=== PATIENT | male | born 1990 | race Caucasian/White ===

== ENCOUNTER 2022-03-20 20:13 | Inpatient (IN) | payer OTHER, MEDICAID ==
[~2022-03-20] VITALS: Ht 172.7 cm; Wt 57.5 kg
[2022-03-20] MEDS ORDERED: SODIUM CHLORIDE 0.9% 1,000 ML IV ONE ×2 (21:15→23:15)
[2022-03-20] MEDS ORDERED: SODIUM BICARBONATE 8.4 % INJ 50ML VIAL IV ONE (21:15)
[2022-03-20 22:43] LABS: Basophils # (auto) 0 10 ^3/uL (0-0.2); Eosinophils # (auto) 0 10 ^3/uL (0-0.8); Hematocrit 45.6 % (41.0-53.0); Hemoglobin 15.3 g/dL (13.5-17.5); Lymphocytes # (auto) 0.9 10 ^3/uL (0.4-5.4); Lymphocytes % (auto) 4.3 % (10.0-50.0); Mean Corpuscular Hemoglobin 30.6 pg (28.0-32.0); Mean Corpuscular Hgb Conc. 33.5 g/dL (32.0-36.0); Mean Corpuscular Volume 91.3 fL (80.0-100.0); Monocytes # (auto) 2.2 10 ^3/uL (0-1.3); Monocytes % (auto) 10.6 % (0.0-12.0); Neutrophils # (auto) 17.9 10 ^3/uL (1.6-8.6); Neutrophils % (auto) 85.1 % (37.0-80.0); Red Cell Distribution Width 12.7 % (11.8-14.3)
[2022-03-20 23:01] LABS: Albumin 4.4 g/dL (3.4-5.0); BUN/Creatinine Ratio 17.8; Calcium 9.4 mg/dL (8.5-10.1); Magnesium 3.2 mg/dL (1.6-2.6); Potassium 5.2 mmol/L (3.5-5.1)
[2022-03-20 23:04] LABS: Total Protein 8.1 g/dL (6.4-8.2)
[2022-03-20] MEDS ORDERED: PIPERACILLIN-TAZOB 3.375GM 100 ML IV ONE (23:15)
[2022-03-20] MEDS ORDERED: InsuLIN R (HUMAN) 100 UNITS in SODIUM CHL 0.9% 99 ML IV SCH (23:30)
[2022-03-20] MEDS ORDERED: DEXTROSE (50%) 50ML SYRG IV PRN (23:30)
[2022-03-20] MEDS ORDERED: InsuLIN REG 1unit/0.01ml Soln (100units/ml) ONE (23:53)
[2022-03-21] MEDS ORDERED: ACCU-CHEK COMFORT CURVE STRIP VI SCH
[2022-03-21] MEDS ORDERED: InsuLIN R (HUMAN) 100 UNITS in SODIUM CHL 0.9% 99 ML IV SCH (00:45)
[2022-03-21] MEDS ORDERED: DEXTROSE (50%) 50ML SYRG IV PRN ×2 (00:45→07:15)
[2022-03-21] MEDS ORDERED: NITROGLYCERIN 0.4 MG SL TAB SL PRN (00:45)
[2022-03-21] MEDS: SODIUM CHLORIDE 0.9% 1,000 ML IV SCH ×2 (00:45→03:00)
[2022-03-21] MEDS ORDERED: MORPHINE SULFATE INJ 2 MG/ml SYRG IV PRN (00:45)
[2022-03-21] MEDS ORDERED: ONDANSETRON HCL 4 MG/2 ML VIAL IV PRN (00:45)
[2022-03-21] MEDS ORDERED: INSULIN LANTUS (GLARGINE) 1 /0.01ml (100units/ml) SC ONE (00:45)
[2022-03-21 01:15] LABS: Urine Bacteria FEW /hpf (None Seen); Urine Blood Negative /uL (Negative); Urine Specific Gravity 1.027 (1.001-1.035); Urine WBC 1 /hpf (0 - 3)
[2022-03-21] MEDS: ACCU-CHEK COMFORT CURVE STRIP VI SCH ×8 (01:34→20:00)
[2022-03-21] MEDS ORDERED: SODIUM CHLORIDE 0.9% 1,000 ML IV SCH ×2 (04:45→06:45)
[2022-03-21 04:57] LABS: Basophils # (auto) 0 10 ^3/uL (0-0.2); Basophils % (auto) 0.3 % (0.0-2.0); Eosinophils # (auto) 0 10 ^3/uL (0-0.8); Hematocrit 37.8 % (41.0-53.0); Hemoglobin 12.6 g/dL (13.5-17.5); Lymphocytes # (auto) 0.7 10 ^3/uL (0.4-5.4); Lymphocytes % (auto) 4.5 % (10.0-50.0); Mean Corpuscular Hemoglobin 29.8 pg (28.0-32.0); Mean Corpuscular Hgb Conc. 33.4 g/dL (32.0-36.0); Mean Corpuscular Volume 89.2 fL (80.0-100.0); Monocytes # (auto) 1.7 10 ^3/uL (0-1.3); Monocytes % (auto) 11.9 % (0.0-12.0); Neutrophils # (auto) 12.2 10 ^3/uL (1.6-8.6); Neutrophils % (auto) 83.3 % (37.0-80.0); Red Blood Cells 4.23 10^6/uL (4.5-5.90); Red Cell Distribution Width 12.8 % (11.8-14.3); White Blood Cell 14.6 10^3/uL (4.4-10.8)
[2022-03-21 05:17] LABS: BUN/Creatinine Ratio 19.4; Calcium 8.1 mg/dL (8.5-10.1); Magnesium 2.3 mg/dL (1.6-2.6); Phosphorus 2.4 mg/dL (2.5-4.90); Potassium 3.9 mmol/L (3.5-5.1)
[2022-03-21] MEDS: InsuLIN REG 1unit/0.01ml Soln (100units/ml) SC SCH ×4 (08:00→21:06)
[2022-03-21 10:51] LABS: Calcium 8.3 mg/dL (8.5-10.1)
[2022-03-21 10:56] LABS: BUN/Creatinine Ratio 16.4
[2022-03-21] MEDS ORDERED: ACETAMINOPHEN 325 MG TAB PO PRN (14:15)
[2022-03-21] MEDS ORDERED: ACETAMINOPHEN 500 MG TAB PO PRN (14:15)
[2022-03-21] MEDS ORDERED: PANTOPRAZOLE 40 MG/10 ML VIAL INJ IV ONE (14:15)
[2022-03-21] MEDS: SOD CHL 0.45% 1,000 ML IV SCH (14:39)
[2022-03-21] MEDS ORDERED: INSU100I4 SC (15:39)
[2022-03-21 22:00] VITALS: BP 105/56
[2022-03-21] MEDS ORDERED: INSULIN LANTUS (GLARGINE) 1 /0.01ml (100units/ml) SC SCH (22:00)
[2022-03-22] MEDS: ACCU-CHEK COMFORT CURVE STRIP VI SCH ×5 (00:11→16:00)
[2022-03-22] MEDS: SOD CHL 0.45% 1,000 ML IV SCH ×2 (01:41→09:11)
[2022-03-22] MEDS: InsuLIN REG 1unit/0.01ml Soln (100units/ml) SC SCH ×5 (04:00→16:00)
[2022-03-22 05:00] VITALS: BP 101/64
[2022-03-22 05:45] LABS: Basophils # (auto) 0 10 ^3/uL (0-0.2); Basophils % (auto) 0.1 % (0.0-2.0); Eosinophils # (auto) 0 10 ^3/uL (0-0.8); Eosinophils % (auto) 0.1 % (0.0-7.0); Hematocrit 33.9 % (41.0-53.0); Hemoglobin 11.7 g/dL (13.5-17.5); Lymphocytes # (auto) 1.5 10 ^3/uL (0.4-5.4); Lymphocytes % (auto) 20.5 % (10.0-50.0); Mean Corpuscular Hemoglobin 30.8 pg (28.0-32.0); Mean Corpuscular Hgb Conc. 34.5 g/dL (32.0-36.0); Mean Corpuscular Volume 89.3 fL (80.0-100.0); Monocytes # (auto) 0.7 10 ^3/uL (0-1.3); Monocytes % (auto) 9.1 % (0.0-12.0); Neutrophils # (auto) 5.1 10 ^3/uL (1.6-8.6); Neutrophils % (auto) 70.2 % (37.0-80.0); Nucleated Red Blood Cells % 0.1 %; Red Cell Distribution Width 13.2 % (11.8-14.3); White Blood Cell 7.3 10^3/uL (4.4-10.8)
[2022-03-22 06:20] LABS: BUN/Creatinine Ratio 19.7; Calcium 8.3 mg/dL (8.5-10.1)
[2022-03-22] MEDS ORDERED: INSULIN LANTUS (GLARGINE) 1 /0.01ml (100units/ml) SC SCH (10:00)
[2022-03-22] MEDS ORDERED: PANTOPRAZOLE 40 MG/10 ML VIAL INJ IV SCH (10:00)
[2022-03-22] MEDS ORDERED: INSLANTI SC ×2 (12:48→15:38)
[2022-03-22 13:00] VITALS: BP 98/76
[2022-03-22] MEDS ORDERED: POTASSIUM CHL 20 Meq TABLET PO ONE (13:00)
[2022-03-22 14:07] VITALS: BP 122/81
[2022-03-22 17:50] VITALS: BP 103/70
== END 2022-03-22 17:00 | disposition home or self-care (01) | DRG 638 ==
LOC: EDBD 20:13 → ER 20:13 → TELE 03-21 00:49 → WEST WING 03-21 15:04
PROVIDERS: ADMIT Nurse Practitioner; ATTEND Internal Medicine
DX: E11.10 Type 2 diabetes mellitus with ketoacidosis without coma (principal); N17.9 Acute kidney failure, unspecified; R65.10 Systemic inflammatory response syndrome (SIRS) of non-infectious origin without acute organ dysfunction; E86.0 Dehydration; K59.00 Constipation, unspecified; Z20.822 Contact with and (suspected) exposure to COVID-19; Z79.4 Long term (current) use of insulin; Z91.19 Patient's noncompliance with other medical treatment and regimen
CPT/HCPCS: 36415; 36600; 51702; 71045; 74176; 80048; 80053; 81001; 82010; 82805; 82962; 83605; 83690; 83735; 83930; 84100; 85025; 87040; 93005; 96361; 96365; 96367; 96375; 99291; C9113; G0378; J1815; J2405; J2543

== ENCOUNTER 2022-06-12 04:26 | Inpatient (IN) | payer OTHER, MEDICAID ==
[~2022-06-12] VITALS: Ht 177.8 cm; Wt 59.9 kg
[~2022-06-12 04:26] MED LIST: INSLANTI SC; INSU100I4 SC
[2022-06-12] MEDS ORDERED: SODIUM CHLORIDE 0.9% 2,000 ML IV ONE (05:15)
[2022-06-12] MEDS ORDERED: ONDANSETRON HCL 4 MG/2 ML VIAL IV ONE (05:15)
[2022-06-12 05:28] LABS: Basophils # (auto) 0 10 ^3/uL (0-0.2); Basophils % (auto) 0.3 % (0.0-2.0); Eosinophils # (auto) 0 10 ^3/uL (0-0.8); Hematocrit 51.8 % (41.0-53.0); Lymphocytes # (auto) 0.6 10 ^3/uL (0.4-5.4); Lymphocytes % (auto) 3.6 % (10.0-50.0); Mean Corpuscular Hemoglobin 31.8 pg (28.0-32.0); Mean Corpuscular Hgb Conc. 32.8 g/dL (32.0-36.0); Mean Corpuscular Volume 96.9 fL (80.0-100.0); Monocytes # (auto) 0.5 10 ^3/uL (0-1.3); Monocytes % (auto) 3.1 % (0.0-12.0); Neutrophils # (auto) 15.3 10 ^3/uL (1.6-8.6); Nucleated Red Blood Cells % 0.2 %; Red Blood Cells 5.35 10^6/uL (4.5-5.90); Red Cell Distribution Width 12.9 % (11.8-14.3); White Blood Cell 16.4 10^3/uL (4.4-10.8)
[2022-06-12 05:38] LABS: Alanine Aminotransferase 54 U/L (16-61); Albumin 4.6 g/dL (3.4-5.0); Anion Gap 28 (5-15); Aspartate Aminotransferase 39 U/L (15-37); BUN/Creatinine Ratio 22.2; Blood Urea Nitrogen 41 mg/dL (7-18); Calcium 9.7 mg/dL (8.5-10.1); Chloride 104 mmol/L (98-107); GFR African American 56 mL/min; GFR Non-African American 46 mL/min; Potassium 5.3 mmol/L (3.5-5.1); Sodium 141 mmol/L (136-145)
[2022-06-12 05:41] LABS: Alkaline Phosphatase 115 U/L (45-117); Bilirubin, Total 0.8 mg/dL (0.2-1.0); Total Protein 8.7 g/dL (6.4-8.2)
[2022-06-12 05:52] LABS: Carbon Dioxide 9 mmol/L (21-32)
[2022-06-12 05:53] LABS: Glucose 567 mg/dL (74-106)
[2022-06-12] MEDS ORDERED: InsuLIN R (HUMAN) 100 UNITS in SODIUM CHL 0.9% 99 ML IV SCH ×2 (06:30→10:00)
[2022-06-12] MEDS ORDERED: INSULIN LANTUS (GLARGINE) 1 /0.01ml (100units/ml) SC ONE ×3 (06:30→13:45)
[2022-06-12] MEDS ORDERED: DEXTROSE (50%) 50ML SYRG IV PRN ×3 (06:30→13:45)
[2022-06-12 07:37] LABS: Urine Bacteria NONE SEEN /hpf (None Seen); Urine Blood Negative /uL (Negative); Urine Specific Gravity 1.029 (1.001-1.035); Urine WBC <1 /hpf (0 - 3)
[2022-06-12] MEDS: SODIUM CHLORIDE 0.9% 1,000 ML IV SCH ×4 (07:46→12:08)
[2022-06-12] MEDS: ACCU-CHEK COMFORT CURVE STRIP VI SCH ×7 (07:46→21:58)
[2022-06-12 08:20] LABS: Magnesium 2.6 mg/dL (1.6-2.6); Phosphorus 2.2 mg/dL (2.5-4.90)
[2022-06-12] MEDS ORDERED: ONDANSETRON HCL 4 MG/2 ML VIAL IV PRN (09:45)
[2022-06-12] MEDS ORDERED: NITROGLYCERIN 0.4 MG SL TAB SL PRN (09:45)
[2022-06-12] MEDS ORDERED: MORPHINE SULFATE INJ 2 MG/ml SYRG IV PRN ×2 (09:45)
[2022-06-12] MEDS ORDERED: ACCU-CHEK COMFORT CURVE STRIP VI SCH (10:30)
[2022-06-12] MEDS ORDERED: SODIUM CHLORIDE 0.9% 1,000 ML IV SCH ×4 (10:30→16:00)
[2022-06-12] MEDS: PANTOPRAZOLE 40 MG/10 ML VIAL INJ IV SCH (10:47)
[2022-06-12 13:23] LABS: Basophils # (auto) 0.1 10 ^3/uL (0-0.2); Basophils % (auto) 0.6 % (0.0-2.0); Eosinophils # (auto) 0 10 ^3/uL (0-0.8); Eosinophils % (auto) 0.1 % (0.0-7.0); Hematocrit 42.2 % (41.0-53.0); Hemoglobin 14.1 g/dL (13.5-17.5); Lymphocytes # (auto) 1.2 10 ^3/uL (0.4-5.4); Lymphocytes % (auto) 10.6 % (10.0-50.0); Mean Corpuscular Hemoglobin 31.3 pg (28.0-32.0); Mean Corpuscular Hgb Conc. 33.4 g/dL (32.0-36.0); Mean Corpuscular Volume 93.8 fL (80.0-100.0); Monocytes # (auto) 1.1 10 ^3/uL (0-1.3); Monocytes % (auto) 10.1 % (0.0-12.0); Neutrophils # (auto) 8.7 10 ^3/uL (1.6-8.6); Neutrophils % (auto) 78.6 % (37.0-80.0); Red Cell Distribution Width 12.6 % (11.8-14.3); White Blood Cell 11.1 10^3/uL (4.4-10.8)
[2022-06-12 13:34] LABS: Albumin 3.5 g/dL (3.4-5.0); Calcium 8.7 mg/dL (8.5-10.1); Potassium 4.7 mmol/L (3.5-5.1)
[2022-06-12 13:37] LABS: BUN/Creatinine Ratio 25.7; Bilirubin, Total 0.7 mg/dL (0.2-1.0); Total Protein 6.5 g/dL (6.4-8.2)
[2022-06-12] MEDS: SOD CHL 0.45% 1,000 ML IV SCH ×2 (14:10→21:45)
[2022-06-12] MEDS: InsuLIN REG 1unit/0.01ml Soln (100units/ml) SC SCH (18:13)
[2022-06-12 22:00] VITALS: BP 102/56
[2022-06-12] MEDS ORDERED: InsuLIN REG 1unit/0.01ml Soln (100units/ml) SC SCH (22:00)
[2022-06-13 05:00] VITALS: BP 107/57
[2022-06-13] MEDS: SOD CHL 0.45% 1,000 ML IV SCH (05:45)
[2022-06-13] MEDS: ACCU-CHEK COMFORT CURVE STRIP VI SCH ×3 (06:27→17:00)
[2022-06-13 06:30] LABS: Basophils # (auto) 0 10 ^3/uL (0-0.2); Basophils % (auto) 0.5 % (0.0-2.0); Eosinophils # (auto) 0 10 ^3/uL (0-0.8); Eosinophils % (auto) 0.4 % (0.0-7.0); Hematocrit 35.3 % (41.0-53.0); Hemoglobin 12.2 g/dL (13.5-17.5); Lymphocytes # (auto) 1.4 10 ^3/uL (0.4-5.4); Lymphocytes % (auto) 23.4 % (10.0-50.0); Mean Corpuscular Hemoglobin 31.9 pg (28.0-32.0); Mean Corpuscular Hgb Conc. 34.7 g/dL (32.0-36.0); Mean Corpuscular Volume 91.9 fL (80.0-100.0); Monocytes # (auto) 0.5 10 ^3/uL (0-1.3); Monocytes % (auto) 7.8 % (0.0-12.0); Neutrophils # (auto) 4.2 10 ^3/uL (1.6-8.6); Neutrophils % (auto) 67.9 % (37.0-80.0); Nucleated Red Blood Cells % 0.1 %; Red Blood Cells 3.84 10^6/uL (4.5-5.90); Red Cell Distribution Width 12.7 % (11.8-14.3); White Blood Cell 6.1 10^3/uL (4.4-10.8)
[2022-06-13] MEDS: InsuLIN REG 1unit/0.01ml Soln (100units/ml) SC SCH ×3 (06:44→17:33)
[2022-06-13 06:52] LABS: Calcium 8.2 mg/dL (8.5-10.1); Potassium 3.4 mmol/L (3.5-5.1)
[2022-06-13 06:54] LABS: Albumin 2.9 g/dL (3.4-5.0); BUN/Creatinine Ratio 26.7
[2022-06-13 06:57] LABS: Total Protein 5.3 g/dL (6.4-8.2)
[2022-06-13 08:00] VITALS: BP 99/61
[2022-06-13 09:00] VITALS: BP 99/61
[2022-06-13] MEDS: PANTOPRAZOLE 40 MG/10 ML VIAL INJ IV SCH (09:34)
[2022-06-13] MEDS ORDERED: INSULIN LANTUS (GLARGINE) 1 /0.01ml (100units/ml) SC SCH ×2 (10:00)
[2022-06-13 12:30] VITALS: BP 94/57
[2022-06-13] MEDS ORDERED: INSU1INJ26 SC ×2 (15:50→15:52)
[2022-06-13 17:30] VITALS: BP 99/62
[2022-06-13 17:44] VITALS: BP 99/61
== END 2022-06-13 20:08 | disposition home or self-care (01) | DRG 638 ==
LOC: EDBD 04:26 → ER 04:26 → UNDOADMIN 09:44 → TELE 09:44 → CENTRAL 15:59
PROVIDERS: ADMIT Nurse Practitioner Family; ATTEND Student in an Organized Health Care Education/Training Program
DX: E10.10 Type 1 diabetes mellitus with ketoacidosis without coma (principal); N17.9 Acute kidney failure, unspecified; D72.829 Elevated white blood cell count, unspecified; E86.0 Dehydration; E87.5 Hyperkalemia; Z91.199 Patient's noncompliance with other medical treatment and regimen due to unspecified reason; Z20.822 Contact with and (suspected) exposure to COVID-19
CPT/HCPCS: 36415; 71045; 80053; 81001; 82010; 82962; 83036; 83735; 83930; 84100; 84484; 85025; 87426; 93005; 96361; 96365; 96375; C9113; G0378; J1815; J2405